=== PATIENT | male | born 1960 | race Caucasian/White ===

== ENCOUNTER 2018-07-26 07:01 | Inpatient (IN) | payer OTHER ==
[2018-07-26] VITALS (22 sets, daily range): BP systolic 138–235; BP diastolic 58–90; PULSE 62–98; RESP 16–38; Ht 180.3 cm; Wt 144.0 kg
[~2018-07-26] VITALS: Ht 180.3 cm; Wt 144.0 kg
[2018-07-26] MEDS ORDERED: INSU100I33 SC (07:37)
[2018-07-26] MEDS ORDERED: INSU100I12 SQ (07:38)
[2018-07-26] MEDS ORDERED: CLON0.2T5 PO (07:39)
[2018-07-26] MEDS ORDERED: METO-319 PO (07:39)
[2018-07-26] MEDS ORDERED: AMLO-218 PO (07:40)
[2018-07-26] MEDS ORDERED: RIVA20TA5 PO (07:40)
[2018-07-26] MEDS ORDERED: CETI10TA19 PO (07:41)
[2018-07-26] MEDS ORDERED: DOLU1TAB PO (07:41)
[2018-07-26] MEDS ORDERED: GABA-526 PO (07:41)
[2018-07-26] MEDS ORDERED: TAMS-14 PO (07:42)
[2018-07-26] MEDS ORDERED: [UNRECOGNIZED DRUG - CODE] PO (07:42)
[2018-07-26] MEDS ORDERED: FURO-110 PO (07:43)
[2018-07-26] MEDS ORDERED: LIDOCAINE 2% (SDV) 5 ML INJ ONE (08:10)
[2018-07-26] MEDS ORDERED: METOCLOPRAMIDE 10 MG INJ ONE (08:10)
[2018-07-26] MEDS ORDERED: PROPOFOL 20 ML ONE (08:10)
[2018-07-26] MEDS ORDERED: MIDAZOLAM 1 MG/ML 2 ML INJ ONE (08:10)
[2018-07-26] MEDS ORDERED: FENTAnyl 50 MCG/ML VIAL ONE (08:10)
[2018-07-26] MEDS ORDERED: CEFAZOLIN 1 GM INJ ONE (08:11)
[2018-07-26] MEDS ORDERED: ONDANSETRON 4 MG INJ ONE (08:11)
[2018-07-26] MEDS ORDERED: SUCCINYLCHOLINE CHLORIDE 100 MG/5 ML SYG IV ONE (08:11)
[2018-07-26] MEDS ORDERED: CEFAZOLIN 2 GM/50 ML (PMX) 50 ML IVPB SCH (08:30)
[2018-07-26] MEDS ORDERED: SOD CHLORIDE 0.9% 1,000 ML IV SCH (08:30)
--- NOTE | 2018-07-26 09:23 | PREAC ---
Date/Time of Note Date/Time of Note DATE: 07/26/18 TIME: : Anesthesia Eval and Record Evaluation Time Pre-Procedure Interview DATE: 07/26/18 TIME: 09:20 Age 57 Sex male NPO: 8 hrs Preoperative diagnosis L thyroid mass Planned procedure L thyroid lobectomy Past Medical History Past Medical History: Includes Cardio: HTN, Dyslipidemia Endo: Diabetes Pulm: Sleep Apnea, Asthma Musculoskeletal: Osteoarthritis Hepatic: Other GI: GERD, Hiatal hernia Heme: Anemia, Other Psych: Depression, Anxiety Infection(s): HIV Surgery & Anesthesia Issues No known issue Meds Anticoagulation: No Beta Che within 24 hr: No Reason Beta Che not given: Pt. not on B-Che Reported Medications Furosemide* (Lasix*) 20 Mg Tablet, 20 MG PO DAILY, TAB 07/26/18 Tamsulosin Hcl* (Flomax*) 0.4 Mg Cap.er.24h, 0.4 MG PO DAILY, CAP 07/26/18 Cholecalciferol (Vitamin D3) (Vitamin D3) 10,000 Unit Tablet, 46323 UNIT PO DAILY, TAB 07/26/18 Cetirizine Hcl* (Cetirizine Hcl*) 10 Mg Tablet, 10 MG PO DAILY, #30 TAB 07/26/18 Gabapentin* (Gabapentin*) 600 Mg Tablet, 600 MG PO BID, #60 TAB 07/26/18 Dolutegravir/Rilpivirine (Juluca 50-25 mg Tablet) 1 Each Tablet, 1 EACH PO DAILY, TAB 07/26/18 Rivaroxaban* (Xarelto*) 20 Mg Tablet, 20 MG PO WITH DINNER, TAB 07/26/18 Amlodipine Besylate* (Norvasc*) 10 Mg Tablet, 10 MG PO DAILY, TAB 07/26/18 Metoprolol Succinate* (Toprol XL*) 50 Mg Tab.er.24h, 50 MG PO DAILY, #30 TAB 07/26/18 Clonidine Hcl* (Clonidine Hcl*) 0.2 Mg Tablet, 0.2 MG PO BID PRN for BLOOD PRESSURE SUPPORT, TAB 07/26/18 Insulin Lispro (Humalog Kwikpen U-100) 100 Unit/1 Ml Insuln.pen, 50 UNIT SQ AC A, EA ADMELOG 07/26/18 Insulin Glargine,Hum.rec.anlog (Basaglar Kwikpen U-100) 100 Unit/1 Ml Insuln.pen, 80 UNIT SC BID, EA 07/26/18 Current Medications Sodium Chloride 1,000 ml @ 75 mls/hr [id number] IV ; Start 07/26/18 at 08:30; Stop 07/26/18 at 20:00 Meds reviewed: Yes Allergies Coded Allergies: No Known Allergy (Unverified , 07/26/18) Allergies Reviewed: Yes Labs/Studies Labs Reviewed: Reviewed by anesthesiologist test: N/A Studies: ECG, CXR Pre-procedure Exam Last vitals Vital Signs Date Temp Pulse Resp B/P (MAP) Pulse Ox O2 O2 Flow FiO2 Time Delivery Rate 07/26/18 97.4 62 16 151/75 96 Room Air 08:28 (100) Airway: Adequate mouth opening, Adequate thyromental dist Mallampati: Mallampati IV Teeth: Normal Lung: Normal Heart: Normal ASA Physical Status ASA physical status: 3 Emergency: None Planned Anesthetic General/MAC: ETT Planned Pain Management Parenteral pain med, Local by surgeon Pre-operative Attestations Prior to commencing anesthesia and surgery, the patient was re-evaluated, there was verification of: *The patient's identity *The results of appropriate recent lab work and preoperative vital signs *The above evaluation not changing prior to induction *Anesthetic plan, risk benefits, alternative and complications discussed with patient/family; questions answered; patient/family understands, accepts and wishes to proceed. ERNESTO BATES MD July 26, 2018 09:23
[2018-07-26] MEDS ORDERED: ONDANSETRON 4 MG INJ IV PRN ×2 (09:30→13:00)
[2018-07-26] MEDS ORDERED: FENTAnyl 50 MCG/ML VIAL IV PRN ×2 (09:30)
[2018-07-26] MEDS ORDERED: MIDAZOLAM 1 MG/ML 2 ML INJ IV PRN (09:30)
[2018-07-26] MEDS ORDERED: HALOPERIDOL 5 MG INJ IV PRN (09:30)
[2018-07-26] MEDS ORDERED: HYDROmorphONE 1 MG/5 ML IV SYRINGE IV PRN ×2 (09:30)
[2018-07-26] MEDS ORDERED: MEPERIDINE 25 MG INJ IV PRN (09:30)
[2018-07-26] MEDS ORDERED: LORAZEPAM 2 MG INJ IV PRN (09:30)
[2018-07-26] MEDS ORDERED: LEVALBUTEROL (NEB) 1.25 MG/0.5 ML AMP HHN PRN (09:30)
[2018-07-26] MEDS ORDERED: DIPHENHYDRAMINE 50 MG INJ IV PRN (09:30)
[2018-07-26] MEDS ORDERED: IPRATROPIUM (NEB) 0.5 MG/2.5 ML AMP HHN PRN (09:30)
[2018-07-26] MEDS ORDERED: HYDROmorphONE 2 MG/ML SYG ONE (09:51)
[2018-07-26] MEDS: D5W-0.45 NACL + KCL 20 MEQ 1,000 ML IV SCH ×2 (12:57→14:55)
--- NOTE | 2018-07-26 12:57 | SIPON ---
Date/Time of Note Date/Time of Note DATE: 07/26/18 TIME: 12:56 Operative Report Preoperative Diagnosis Papillary thyroid cancer Postoperative Diagnosis Same Operation/Procedure Performed Total thyroidectomy Surgeon see signature line metal forger's assistant Dr Chapman Anesthesia: general Estimated blood loss: 10 - 50 ml's Transfusion Required none Specimen Total thyroidectomy specimen Grafts/Implants none Complications none IDANIA MONTANO MD July 26, 2018 12:57
[2018-07-26] MEDS ORDERED: ACETAMINOPHEN 1000MG/100ML IV 100 ML IVPB PRN (13:00)
[2018-07-26] MEDS: LABETALOL HCL 20MG INJ IV PRN ×2 (13:25→13:28)
[2018-07-26] MEDS: hydrALAzine 20 MG INJ IV PRN ×2 (13:29→13:53)
--- NOTE | 2018-07-26 14:55 | OPR ---
DATE OF OPERATION: 07/26/2018 PREOPERATIVE DIAGNOSIS: Papillary thyroid cancer, left thyroid lobe. POSTOPERATIVE DIAGNOSIS: Papillary thyroid cancer, left thyroid lobe. OPERATION PERFORMED: Total thyroidectomy. ANESTHESIA: General. ANESTHESIOLOGIST: Dr. Mccann. SURGEON: Godwin Salazar MD DISABILITY COORDINATOR: Oskar Lan MD INDICATIONS FOR PROCEDURE: The patient is a 57-year-old male who presented with an approximately 3 c m left thyroid mass. Biopsy confirmed papillary cancer. He was counseled as to the risks versus catherine efits of surgery. Initially we discussed possible left lobectomy, possible total thyroidectomy. The patient understood that based on intraoperative findings, he may undergo total thyroidectomy. He co nsented and was scheduled for surgery. DESCRIPTION OF PROCEDURE: The patient was brought to the operating theater, placed under general ane sthesia. The head was put in the extended position. The neck was shaved, prepped and draped in usua l sterile fashion. Approximately 2 cm above the clavicle bilaterally an incision was made extending to either side of midline for a distance of approximately 5 to 6 cm. Subcutaneous tissue was dissect ed with cautery. The platysma muscles were then transected bilaterally, also with cautery. Subplaty smal flaps were then created, first superiorly to the level of the hyoid bone. This was accomplished using cautery, then inferiorly to the level of the clavicles and sternal notch. The Ellsworth retract or was then placed. The median raphe was incised longitudinally to facilitate visualization of the s trap muscles. Attention was directed to the left side. Strap muscles were meticulously dissected of f of the left lobe of the thyroid. The left lobe of the thyroid appeared to be very firm and there w as a question whether or not there was extracapsular extension. Mobilization of the thyroid gland to ok place. First, the inferior pole was mobilized by sequentially using cautery. The left recurrent laryngeal nerve was identified throughout its course and kept out of harm's way. The left inferior p arathyroid gland was gently moved off the gland and kept out of harm's way. The superior pole was th en mobilized and the left lobe of the thyroid was then meticulously dissected out of the thyroid bed. The recurrent laryngeal nerve was very close to the tumor; however, successful dissection of the th yroid off of that area of the nerve took place and using nerve monitoring, it was confirmed that the nerve was intact. Also, the left superior parathyroid gland was identified and kept out of harm's wa y. Attention was then directed to the right side. In a similar fashion, inferior pole was mobilized usi ng the LigaSure device and the right lobe of the thyroid gland was mobilized toward midline. The sup erior pole was then meticulously isolated and transected also using LigaSure device. The recurrent l aryngeal nerve and the superior and inferior parathyroid glands were kept out of harm's way throughou t the course of the operation. Final connective tissue attachments to the trachea, consistent with t he ligament of Moser were then transected. Specimen was removed, oriented and sent for permanent pat hologic analysis. A suspicious lymph node was identified. It was removed and sent for permanent pa thologic analysis after intraoperative analysis revealed probable metastatic disease. The wound was irrigated. Minimal bleeding was controlled with cautery, and the 2 Lio drains were then placed, one in the left thyroid bed and one in the right thyroid bed. They were secured to the skin of the anterior thorax with 2-0 nylon suture in a standard fashion. The median raphe was then reapproximate d with 4-0 Vicryl sutures in the standard fashion. Subsequently, the platysma muscles were reapproxi mated also with 4-0 Vicryl sutures and final skin approximation then took place with 5-0 PDS sutures in subcuticular fashion. Benzoin and Steri-Strips were then applied. The patient tolerated procedur e well. The estimated blood loss was approximately 30 mL. There were no complications. The patient was transported in stable condition to the recovery room. Dictated By: GODWIN SALAZAR MD TL/ALENA Conf#: [id number] DID#: [id number] CC: OSKAR LAN MD;*EndCC*
[2018-07-26] MEDS: morphine 2 MG INJ IV PRN ×2 (14:59→20:05)
--- NOTE | 2018-07-26 15:26 | HP ---
Date/Time of Note Date/Time of Note DATE: 07/26/18 TIME: 15:21 Assessment/Plan VTE Prophylaxis SCD applied (from Nsg): Yes Pharmacological prophylaxis: NA/contraindicated Pharm contraindication: surgical contra Lines/Catheters IV Catheter Type (from Nrsg): Peripheral IV Assessment/Plan Assessment/Plan -Papillary thyroid cancer, left thyroid lobe. Status post total thyroidectomy by Dr. Salazra on 07/26/2018. Continue IV fluids and postoperative antibiotic. Continue Mccleary and morphine as needed for pain and Zofran as needed for nausea. Monitor serum calcium. Advance diet per surgical recommendations. -Hypertension, continue Norvasc and metoprolol -Hyperlipidemia -Diabetes, continue Lantus and pre-meal NovoLog. -HIV, resume home meds -Morbid obesity with BMI of 44.3 Further recommendations based on clinical course. Plan of care discussed with Dr. Laurent. Results 24hrs Laboratory Tests Test 07/26/18 08:08 07/26/18 13:14 Bedside Glucose 186 214 HPI/ROS Admit Date/Time Admit Date/Time July 26, 2018 at 13:26 Hx of Present Illness The patient is a 57-year-old male with multiple chronic conditions including hypertension, hyperlipidemia, diabetes, HIV, morbid obesity, and depression. Patient was evaluated by general surgery for 3 cm left thyroid mass. Subsequent biopsy confirmed papillary cancer. Patient was brought to the hospital and underwent total thyroidectomy. Post operatively patient is experiencing significant pain and patient is admitted for further evaluation and management. ROS 12 point review of system is negative except for what mentioned in HPI PMH/Family/Social Past Medical History Medical History: diabetes, high cholesterol, hypertension Medications Current Medications Sodium Chloride 1,000 ml @ 75 mls/hr [id number] IV ; Start 07/26/18 at 08:30; Stop 07/26/18 at 20:00 Haloperidol (Haldol) 1 mg PACU ORDER PRN IV NAUSEA/VOMITING; Start 07/26/18 at 09:30; Stop 07/26/18 at 14:00; Status UNV Ondansetron HCl (Zofran Inj) 4 mg Q6H PRN IV NAUSEA AND/OR VOMITING Last ad ministered on 07/26/18at 14:59; Admin Dose 4 MG; Start 07/26/18 at 13:00 Potassium Chloride/Dextrose/ Sod Cl 1,000 ml @ 125 mls/hr Q8H IV Last administered on 07/26/18at 14:55; Admin Dose 125 MLS/HR; Start 07/26/18 at 12:57 Morphine Sulfate (morphine) 2 mg Q1H PRN IV PAIN Last administered on 07/26/18at 14:59; Admin Dose 2 MG; Start 07/26/18 at 13:00 Acetaminophen 100 ml @ 400 mls/hr Q6H PRN IVPB PAIN; Start 07/26/18 at 13:00; Stop 07/27/18 at 12:59 Coded Allergies: No Known Allergy (Unverified , 07/26/18) Past Surgical History Past Surgical Hx: cholecystectomy, other (Status post pilonidal cyst removal on his back) Family History Significant Family History: other (Negative for history of thyroid cancer) Social History Alcohol Use: none Smoking Status: Current every day smoker Drug Use: marijuana Exam/Review of Systems Vital Signs Vitals Vital Signs Date Temp Pulse Resp B/P (MAP) Pulse Ox O2 O2 Flow FiO2 Time Delivery Rate 07/26/18 82 24 138/59 95 Nasal 13:58 (85) Cannula 07/26/18 97.6 13:09 Exam Constitutional: alert, oriented Head: normocephalic Neck: other (Status post total thyroidectomy with lower neck surgical incision) Respiratory: clear to auscultation Cardiovascular: nl pulses Gastrointestinal: soft, non-tender Musculoskeletal: nl extremities to inspection Extremities: normal pulses Neurological: nl mental status EVELYN WERNER July 26, 2018 15:26
[2018-07-26] MEDS ORDERED: DEXTROSE 50% 50 ML SYRINGE IV PRN ×2 (16:30)
[2018-07-26] MEDS ORDERED: GLUCOSE GEL 15 GRAM TUBE BUCCAL PRN (16:30)
[2018-07-26] MEDS ORDERED: GLUCOSE GEL 15 GRAM TUBE PO PRN ×2 (16:30)
[2018-07-26] MEDS ORDERED: GLUCAGON 1 MG INJ IM PRN (16:30)
--- NOTE | 2018-07-26 16:41 | PAC ---
Date/Time of Note Date/Time of Note DATE: 07/26/18 TIME: 16:41 Post-Anesthesia Notes Post-Anesthesia Note Last documented vital signs Vital Signs Date Temp Pulse Resp B/P (MAP) Pulse Ox O2 O2 Flow FiO2 Time Delivery Rate 07/26/18 Nasal 4.0 14:30 Cannula 07/26/18 82 24 138/59 95 13:58 (85) 07/26/18 97.6 13:09 Activity: WNL Respiratory function: WNL Cardiovascular function: WNL Mental status: Baseline Pain reasonably controlled: Yes Hydration appropriate: Yes Nausea/Vomiting absent: Yes ERNESTO BATES MD July 26, 2018 16:41
[2018-07-26] MEDS: INSULIN ASPART [NOVOLOG] 3 ML PEN SC SCH ×3 (17:54→21:05)
[2018-07-26] MEDS ORDERED: RIVAROXABAN 20 MG TABLET PO SCH (17:55)
[2018-07-26] MEDS ORDERED: INSULIN GLARGINE [LANTus] (100 UNITS/ML) SYG SC SCH (20:00)
[2018-07-26] MEDS: GABAPENTIN 300 MG CAP PO SCH (21:02)
[2018-07-27 00:32] VITALS: BP 173/80; PULSE 100; RESP 18
[2018-07-27] MEDS: D5W-0.45 NACL + KCL 20 MEQ 1,000 ML IV SCH ×2 (01:57→12:30)
[2018-07-27] MEDS: ACCU-CHEK XX SCH (02:00)
[2018-07-27 05:46] VITALS: BP 166/74; PULSE 91; RESP 18
[2018-07-27 07:36] VITALS: BP 179/80; PULSE 92; RESP 20
[2018-07-27] MEDS: TAMSULOSIN (SR) 0.4 MG CAP PO SCH (08:46)
[2018-07-27] MEDS: GABAPENTIN 300 MG CAP PO SCH ×2 (08:46→20:39)
[2018-07-27] MEDS: FUROSEMIDE 20 MG TAB PO SCH (08:47)
[2018-07-27] MEDS: AMLODIPINE 10 MG TAB PO SCH (08:48)
[2018-07-27] MEDS: METOPROLOL (XL) 50 MG TAB PO SCH (08:48)
[2018-07-27] MEDS ORDERED: NON-FORMULARY/PATIENT OWN MED (Dolutegravir/Rilpivirine (Juluca 50-25 mg Tablet) 1 EACH) PO SCH (09:00)
[2018-07-27] MEDS: INSULIN ASPART [NOVOLOG] 3 ML PEN SC SCH ×7 (09:02→20:38)
[2018-07-27] MEDS: [UNRECOGNIZED DRUG - OTHER] XX SCH ×2 (10:00→17:57)
[2018-07-27] MEDS: DOLUTEGRAVIR XX SCH ×2 (10:00→17:57)
[2018-07-27] MEDS: RILPIVIRINE XX SCH ×2 (10:00→17:57)
[2018-07-27] MEDS: SOD CHLORIDE 0.45% 1,000 ML IV SCH (14:27)
--- NOTE | 2018-07-27 15:39 | PN ---
DATE: 07/27/2018 Postop day #1 status post total thyroidectomy. SUBJECTIVE: Feels better. States that his voice is better. Complains of neck and back pain. Appar ently, there has been relatively lot of drainage from the Lio drains and during the course of the night, they have to change dressing twice and we also changed the dressing today at 2:00 because the sponges were saturated. The drainage is slightly bloody, one might say serosanguineous. OBJECTIVE: GENERAL: Alert, awake. VITAL SIGNS: Temperature maximum today 99.1, heart rate 92, respirations 20, blood pressure 179/80, saturation 97% room air. HEENT: As was mentioned, voice is almost normal. Dressing was changed. Wound is clean. HEART: Regular. LUNGS: Clear. INPUT AND OUTPUT: Two [place] drains. The medial part of the wound has drained serosanguineous flui d. Dressing was changed. Bulky dressing was applied. LABORATORY DATA: WBC 10,500 with 71% segmented, hemoglobin 12.8, hematocrit 40. Chemistry: Sodium, potassium normal. BUN is 19, creatinine is 1.77. I am not sure if this is baseline for the patient or this is prerenal, so we are going to repeat it tomorrow morning. PLAN: We will keep the patient overnight. We will start full liquid diet as of now and change the d ressing tomorrow. If the amount of drainage is not too much, we are going to remove the drains tomor row and send the patient home granted the kidney function is normal. We are going to repeat basic met abolic panel to find out the creatinine and BUN tomorrow. Dictated By: JUAN PABLO LAN MD PS/NTS Conf#: [id number] DID#: [id number] CC: IDANIA MONTANO MD; AURELIANO PRATT MD;*EndCC*
--- NOTE | 2018-07-27 16:28 | PN ---
Date/Time of Note Date/Time of Note DATE: 07/27/18 TIME: 16:22 Assessment/Plan VTE Prophylaxis Risk score (from Ns)>0 risk: 8 SCD applied (from Ns): Yes Pharmacological prophylaxis: NA/contraindicated Pharm contraindication: surgical contra Lines/Catheters IV C[facility]ter Type (from [facility] Peripheral IV Urinary Cath still in place: No Assessment/Plan Hospital Course Patient has a motor drainage from Lio drain will check CBC tomorrow, monitor serum calcium. Will adjust Lantus for better glycemic control. Assessment/Plan -Papillary thyroid cancer, left thyroid lobe. Status post total thyroidectomy by Dr. Salazar on 07/26/2018. Continue IV fluids and postoperative antibiotic. Continue Whittaker and morphine as needed for pain and Zofran as needed for nausea. Monitor serum calcium. Advance diet per surgical recommendations. -Hypertension, continue Norvasc and metoprolol -Hyperlipidemia -Diabetes, continue Lantus and pre-meal NovoLog. -HIV, resume home meds -Morbid obesity with BMI of 44.3 Further recommendations based on clinical course. Plan of care discussed with Dr. Laurent. Result Diagram: 07/27/18 0427 07/27/18 0427 Results 24hrs Laboratory Tests Test 07/26/18 18:31 07/26/18 20:58 07/27/18 00:42 07/27/18 01:53 Calcium Level 8.2 L 8.2 L Bedside Glucose 360 H 249 H Test 07/27/18 04:27 07/27/18 08:22 07/27/18 08:52 07/27/18 12:56 White Blood Count 10.5 Red Blood Count 4.61 L Hemoglobin 12.8 L Hematocrit 40.2 L Mean Corpuscular 87.2 Volume Mean Corpuscular 27.8 L Hemoglobin Mean Corpuscular 31.8 L Hemoglobin Concent Red Cell 13.2 Distribution Width Platelet Count 281 Mean Platelet 11.0 H Volume Immature 0.400 Granulocytes % Neutrophils % 71.7 Lymphocytes % 17.1 Monocytes % 10.2 Eosinophils % 0.3 Basophils % 0.3 Nucleated Red 0.0 Blood Cells % Immature 0.040 H Granulocytes # Neutrophils # 7.6 H Lymphocytes # 1.8 Monocytes # 1.1 H Eosinophils # 0.0 Basophils # 0.0 Nucleated Red 0.0 Blood Cells # Sodium Level 143 Potassium Level 4.4 Chloride Level 110 Carbon Dioxide 28 Level Anion Gap 5 Blood Urea 19 Nitrogen Creatinine 1.77 H Est Glomerular 40 L Filtrat Rate mL/min Glucose Level 199 Calcium Level 8.3 L Lab Scanned Report REFERENCE LAB Bedside Glucose 232 H 181 Test 07/27/18 14:02 Calcium Level 8.7 Exam/Review of Systems Exam Vitals Vital Signs Date Temp Pulse Resp B/P (MAP) Pulse Ox O2 O2 Flow FiO2 Time Delivery Rate 07/27/18 99.1 92 20 179/80 97 Nasal 07:36 (113) Cannula 07/27/18 2.0 05:46 Intake and Output 07/26/18 07/26/18 07/27/18 1515:00 23:00 07:00 IntakeIntake Total 0 ml 285 ml 715 ml OutputOutput Total 50 ml BalanceBalance -50 ml 285 ml 715 ml Exam Constitutional: alert, oriented Neck: other (Status post total thyroidectomy with lower neck surgical incision, pen baldomero drain) Respiratory: clear to auscultation Cardiovascular: nl pulses Gastrointestinal: soft, non-tender Musculoskeletal: nl extremities to inspection Extremities: normal pulses Neurological: nl mental status Results Results 24hrs Laboratory Tests Test 07/26/18 18:31 07/26/18 20:58 07/27/18 00:42 07/27/18 01:53 Calcium Level 8.2 L 8.2 L Bedside Glucose 360 H 249 H Test 07/27/18 04:27 07/27/18 08:22 07/27/18 08:52 07/27/18 12:56 White Blood Count 10.5 Red Blood Count 4.61 L Hemoglobin 12.8 L Hematocrit 40.2 L Mean Corpuscular 87.2 Volume Mean Corpuscular 27.8 L Hemoglobin Mean Corpuscular 31.8 L Hemoglobin Concent Red Cell 13.2 Distribution Width Platelet Count 281 Mean Platelet 11.0 H Volume Immature 0.400 Granulocytes % Neutrophils % 71.7 Lymphocytes % 17.1 Monocytes % 10.2 Eosinophils % 0.3 Basophils % 0.3 Nucleated Red 0.0 Blood Cells % Immature 0.040 H Granulocytes # Neutrophils # 7.6 H Lymphocytes # 1.8 Monocytes # 1.1 H Eosinophils # 0.0 Basophils # 0.0 Nucleated Red 0.0 Blood Cells # Sodium Level 143 Potassium Level 4.4 Chloride Level 110 Carbon Dioxide 28 Level Anion Gap 5 Blood Urea 19 Nitrogen Creatinine 1.77 H Est Glomerular 40 L Filtrat Rate mL/min Glucose Level 199 Calcium Level 8.3 L Lab Scanned Report REFERENCE LAB Bedside Glucose 232 H 181 Test 07/27/18 14:02 Calcium Level 8.7 Medications Medication Current Medications Ondansetron HCl (Zofran Inj) 4 mg Q6H PRN IV NAUSEA AND/OR VOMITING Last administered on 07/26/18 14:59; Admin Dose 4 MG; Start 07/26/18 at 13:00 Morphine Sulfate (morphine) 2 mg Q1H PRN IV PAIN Last administered on 07/26/18 20:05; Admin Dose 2 MG; Start 07/26/18 at 13:00 Amlodipine Besylate (Norvasc) 10 mg DAILY PO Last administered on 07/27/18 08:48; Admin Dose 10 MG; Start 07/27/18 at 09:00 Clonidine (Catapres) 0.2 mg BID PRN PO SBP> 160 Last administered on 07/27/18 00:44; Admin Dose 0.2 MG; Start 07/26/18 at 15:30 Furosemide (Lasix) 20 mg DAILY PO Last administered on 07/27/18 08:47; Admin Dose 20 MG; Start 07/27/18 at 09:00 Gabapentin (Neurontin) 600 mg BID PO Last administered on 07/27/18 08:46; Admin Dose 600 MG; Start 07/26/18 at 21:00 Metoprolol Succinate (Toprol Xl) 50 mg DAILY PO Last administered on 07/27/18 08:48; Admin Dose 50 MG; Start 07/27/18 at 09:00 Tamsulosin HCl (Flomax) 0.4 mg DAILY PO Last administered on 07/27/18 08:46; Admin Dose 0.4 MG; Start 07/27/18 at 09:00 Miscellaneous Information 1 each DAILY PO ; Start 07/27/18 at 09:00; Status UNV Diagnostic Test (Pha) (Accu-Chek) 1 ea 02 XX Last administered on 07/27/18at 02:00; Admin Dose 1 EA; Start 07/27/18 at 02:00 Insulin Glargine (Lantus) 43 units DAILY@2000 SC Last administered on 07/26/18 21:04; Admin Dose 43 UNITS; Start 07/26/18 at 20:00 Insulin Aspart (Novolog Insulin Pen) 14 unit WITH MEALS SC Last administered on 07/27/18at 12:59; Admin Dose 14 UNIT; Start 07/26/18 at 17:55 Insulin Aspart (Novolog Insulin Pen) NOVOLOG *MILD* ALGORITHM WITH MEALS BEDTIME SC Last administered on 07/27/18at 12:59; Admin Dose 2 UNIT; Start 07/26/18 at 17:55 Miscellaneous Information 1 ea NOTE XX ; Start 07/26/18 at 16:30 Glucose (Glutose) 15 gm Q15M PRN PO DECREASED GLUCOSE; Start 07/26/18 at 16:30 Glucose (Glutose) 22.5 gm Q15M PRN PO DECREASED GLUCOSE; Start 07/26/18 at 16:30 Dextrose (D50w Syringe) 25 ml Q15M PRN IV DECREASED GLUCOSE; Start 07/26/18 at 16:30 Dextrose (D50w Syringe) 50 ml Q15M PRN IV DECREASED GLUCOSE; Start 07/26/18 at 16:30 Glucagon (Glucagen) 1 mg Q15M PRN IM DECREASED GLUCOSE; Start 07/26/18 at 16:30 Glucose (Glutose) 15 gm Q15M PRN BUCCAL DECREASED GLUCOSE; Start 07/26/18 at 16:30 Miscellaneous Information (*Order Clarification Bulletin) MEDICATION REQUIRES CLARIFICATION: Q8H XX ; Start 07/27/18 at 10:00 Sodium Chloride 1,000 ml @ 60 mls/hr [id number] IV Last administered on 07/27/18at 14:27; Admin Dose 60 MLS/HR; Start 07/27/18 at 14:00 EVELYN WERNER July 27, 2018 16:28
[2018-07-27] MEDS ORDERED: INSULIN GLARGINE [LANTus] (100 UNITS/ML) SYG SC SCH (20:00)
[2018-07-27 20:38] VITALS: BP 177/83; PULSE 103; RESP 18
[2018-07-27] MEDS: hydrALAzine 20 MG INJ IV PRN (20:40)
[2018-07-27] MEDS: morphine 2 MG INJ IV PRN (22:21)
[2018-07-28] VITALS (7 sets, daily range): BP systolic 148–216; BP diastolic 78–104; PULSE 95–108; RESP 16–20
[2018-07-28] MEDS: [UNRECOGNIZED DRUG - OTHER] XX SCH ×2 (02:00→10:00)
[2018-07-28] MEDS: RILPIVIRINE XX SCH ×2 (02:00→10:00)
[2018-07-28] MEDS: ACCU-CHEK XX SCH (02:00)
[2018-07-28] MEDS: DOLUTEGRAVIR XX SCH ×2 (02:00→10:00)
[2018-07-28] MEDS: morphine 2 MG INJ IV PRN ×2 (02:08→08:25)
[2018-07-28] MEDS: hydrALAzine 20 MG INJ IV PRN (06:20)
[2018-07-28] MEDS: SOD CHLORIDE 0.45% 1,000 ML IV SCH (06:40)
[2018-07-28] MEDS: AMLODIPINE 10 MG TAB PO SCH (07:03)
[2018-07-28] MEDS: FUROSEMIDE 20 MG TAB PO SCH (07:04)
[2018-07-28] MEDS: METOPROLOL (XL) 50 MG TAB PO SCH (07:04)
[2018-07-28] MEDS: INSULIN ASPART [NOVOLOG] 3 ML PEN SC SCH ×4 (08:28→13:06)
[2018-07-28] MEDS: TAMSULOSIN (SR) 0.4 MG CAP PO SCH (08:29)
[2018-07-28] MEDS: GABAPENTIN 300 MG CAP PO SCH (08:30)
[2018-07-28] MEDS ORDERED: LORATADINE 10 MG TAB PO SCH (09:00)
[2018-07-28] MEDS ORDERED: hydrALAzine 20 MG INJ IV PRN (12:00)
[2018-07-28] MEDS ORDERED: LEVO100T8 PO (12:17)
[2018-07-28] MEDS ORDERED: HYDR-3601 NGT (12:17)
[2018-07-28] MEDS ORDERED: LISINOPRIL 10 MG TAB PO SCH (12:30)
[2018-07-28] MEDS ORDERED: HYDROCODONE/APAP (5/325) TAB NGT PRN ×2 (12:30)
--- NOTE | 2018-07-29 23:05 | DS ---
Date/Time of Note Date/Time of Note DATE: 07/29/18 TIME: 23:04 Discharge Summary Admission/Discharge Info Admit Date/Time July 26, 2018 at 13:26 Discharge Date/Time July 28, 2018 at 13:49 Patient Condition: Stable Hx of Present Illness The patient is a 57-year-old male with multiple chronic conditions including hypertension, hyperlipidemia, diabetes, HIV, morbid obesity, and depression. Patient was evaluated by general surgery for 3 cm left thyroid mass. Subsequent biopsy confirmed papillary cancer. Patient was brought to the hospital and underwent total thyroidectomy. Post operatively patient is experiencing signi ficant pain and patient is admitted for further evaluation and management. Hospital Course -Papillary thyroid cancer, left thyroid lobe. Status post total thyroidectomy by Dr. Salazar on 07/26/2018. Continue IV fluids and postoperative antibiotic. Continue Russell and morphine as needed for pain and Zofran as needed for nausea. Monitor serum calcium. Advance diet per surgical recommendations. -Hypertension, continue Norvasc and metoprolol -Hyperlipidemia -Diabetes, continue Lantus and pre-meal NovoLog. -HIV, resume home meds -Morbid obesity with BMI of 44.3 Plan of care discussed with Dr. Laurent. Home Meds Active Scripts Levothyroxine Sodium* (Levothyroxine Sodium*) 100 Mcg Tablet, 100 MCG PO BEFORE BREAKFAST, #30 TAB Prov:EVELYN WERNER 07/28/18 Hydrocodone Bit-Acetaminophen (Hydrocodone Bit-APAP) 5-325MG Tablet, 1 TAB NGT Q4H PRN for MODERATE PAIN LEVEL 4-6, #30 TAB Prov:EVELYN WERNER 07/28/18 Reported Medications Furosemide* (Lasix*) 20 Mg Tablet, 20 MG PO DAILY, TAB 07/26/18 Tamsulosin Hcl* (Flomax*) 0.4 Mg Cap.er.24h, 0.4 MG PO DAILY, CAP 07/26/18 Cholecalciferol (Vitamin D3) (Vitamin D3) 10,000 Unit Tablet, 66163 UNIT PO DAILY, TAB 07/26/18 Cetirizine Hcl* (Cetirizine Hcl*) 10 Mg Tablet, 10 MG PO DAILY, #30 TAB 07/26/18 Gabapentin* (Gabapentin*) 600 Mg Tablet, 600 MG PO BID, #60 TAB 07/26/18 Dolutegravir/Rilpivirine (Juluca 50-25 mg Tablet) 1 Each Tablet, 1 EACH PO DAILY, TAB 07/26/18 Rivaroxaban* (Xarelto*) 20 Mg Tablet, 20 MG PO WITH DINNER, TAB 07/26/18 Amlodipine Besylate* (Norvasc*) 10 Mg Tablet, 10 MG PO DAILY, TAB 07/26/18 Metoprolol Succinate* (Toprol XL*) 50 Mg Tab.er.24h, 50 MG PO DAILY, #30 TAB 07/26/18 Clonidine Hcl* (Clonidine Hcl*) 0.2 Mg Tablet, 0.2 MG PO BID PRN for BLOOD PRESSURE SUPPORT, TAB 07/26/18 Insulin Lispro (Humalog Kwikpen U-100) 100 Unit/1 Ml Insuln.pen, 50 UNIT SQ AC A, EA ADMELOG 07/26/18 Insulin Glargine,Hum.rec.anlog (Basaglar Kwikpen U-100) 100 Unit/1 Ml Insuln.pen, 80 UNIT SC BID, EA 07/26/18 Follow-up Plan Follow-up with Dr. Salazar in 1 to 2 weeks, follow-up with patient eclectic doctor in 2 weeks. Primary Care Provider Time spent on discharge: > 30 minutes EVELYN WERNER July 29, 2018 23:05
== END 2018-07-28 13:49 | disposition home or self-care (01) | DRG 626 ==
LOC: SDS 07:01 → EDUNIT# 09:00 → EDSTATUS 09:00 → SDS 13:25 → REC 13:26 → MS1 14:37
PROVIDERS: ADMIT Surgery Surgical Oncology; ATTEND Surgery Surgical Oncology
PROC: 0GTH0ZZ Resection of Right Thyroid Gland Lobe, Open Approach (ICD-10-PCS; 2018-07-26)
PROC: 07B10ZX Excision of Right Neck Lymphatic, Open Approach, Diagnostic (ICD-10-PCS; 2018-07-26)
PROC: 0GTG0ZZ Resection of Left Thyroid Gland Lobe, Open Approach (ICD-10-PCS; principal; 2018-07-26 09:00)
DX: C73 Malignant neoplasm of thyroid gland (principal); Z68.41 Body mass index [BMI] 40.0-44.9, adult; C77.9 Secondary and unspecified malignant neoplasm of lymph node, unspecified; E66.01 Morbid (severe) obesity due to excess calories; E78.5 Hyperlipidemia, unspecified; E11.9 Type 2 diabetes mellitus without complications; F32.9 Major depressive disorder, single episode, unspecified
CPT/HCPCS: 80048; 82310; 82962; 85025; 88307; 88331; 94664; J0131; J0360; J0690; J1170; J1815; J2175; J2250; J2270; J2405; J2765; J3010; J3480